=== PATIENT | female | born 1985 | race Caucasian/White ===

== ENCOUNTER 2017-12-11 11:52 | Inpatient (IN) | payer OTHER ==
[2017-12-11] MEDS: LACTATED RINGER'S 1,000 ML IV ×2 (12:49→17:00)
[2017-12-11 13:02] LABS: ADD MAN DIFF? NO
[2017-12-11 13:05] LABS: WHITE BLOOD COUNT 12.2 10^3/ul (4.8-10.8)
[2017-12-11 13:05] LABS: BASOPHILS % 0.3 % (0.0-2.0); EOSINOPHILS # 0.1 10^3/ul (0.0-0.5); EOSINOPHILS % 0.7 % (0.0-7.0); HEMATOCRIT 26.4 % (37.0-47.0); HEMOGLOBIN 9.1 g/dl (12.0-16.0); LYMPHOCYTES # 1.3 10^3/ul (0.8-2.9); LYMPHOCYTES % 10.8 % (15.0-51.0); MEAN CORPUSCULAR HEMOGLOBIN 32.5 pg (29.0-33.0); MEAN CORPUSCULAR HGB CONC 34.5 g/dl (32.0-37.0); MEAN CORPUSCULAR VOLUME 94.3 fl (82.0-101.0); MEAN PLATELET VOLUME 11.2 fl (7.4-10.4); MONOCYTE # 0.9 10^3/ul (0.3-0.9); MONOCYTES % 7.4 % (0.0-11.0); NEUTROPHIL # 9.6 10^3/ul (1.6-7.5); NEUTROPHILS % 79.1 % (39.0-77.0); PLATELET COUNT 212 10^3/UL (140-415); RED CELL DISTRIBUTION WIDTH 13.4 % (11.5-14.5)
[2017-12-11 13:27] LABS: ALBUMIN/GLOBULIN RATIO 0.93; ANION GAP 7 (5-13); CARBON DIOXIDE 23 mmol/L (21-31); CHLORIDE 107 mmol/L (97-110); Estimated GFR > 60 mL/min (>60); POTASSIUM 4.1 mmol/L (3.5-5.1); SODIUM 137 mmol/L (135-144)
[2017-12-11 13:40] LABS: RUPTURE FETAL MEMBRANES NEGATIVE (NEGATIVE)
[2017-12-11] MEDS: BETAMET NA PHOS/AC(6 MG/ML) 5ML INJ IM (13:42)
[2017-12-11 13:47] LABS: ALANINE AMINOTRANSFERASE 17 IU/L (13-69); ALBUMIN 2.7 g/dl (3.3-4.9); ALKALINE PHOSPHATASE 95 IU/L (42-121); ASPARTATE AMINO TRANSFERASE 22 IU/L (15-46); BILIRUBIN,INDIRECT 0.2 mg/dl (0-1.1); BILIRUBIN,TOTAL 0.2 mg/dl (0.2-1.3); BLOOD UREA NITROGEN 7 mg/dl (7-20); CALCIUM 9.1 mg/dl (8.4-10.2); GLUCOSE 89 mg/dl (70-220); TOTAL PROTEIN 5.6 g/dl (6.1-8.1)
[2017-12-11 13:58] LABS: HEPATITIS B SURFACE ANTIGEN NEGATIVE (NEGATIVE)
[2017-12-11 14:08] LABS: HIV 1&2 ANTIBODY NEGATIVE (NEGATIVE)
[2017-12-11 14:50] LABS: ADD UMIC NO; UR ASCORBIC ACID NEGATIVE (NEGATIVE); UR BILIRUBIN (Dip) NEGATIVE (NEGATIVE); UR BLOOD (Dip) NEGATIVE (NEGATIVE); UR CLARITY SLIGHTLY CLOUDY (CLEAR); UR COLOR STRAW (YELLOW); UR GLUCOSE (Dip) NEGATIVE (NEGATIVE); UR KETONES (Dip) NEGATIVE (NEGATIVE); UR LEUKOCYTE ESTERASE (Dip) NEGATIVE Leu/ul (NEGATIVE); UR NITRITE (Dip) NEGATIVE (NEGATIVE); UR RBC 0 /HPF (0-5); UR SPECIFIC GRAVITY (Dip) 1.005 (1.003-1.030); UR TOTAL PROTEIN (Dip) NEGATIVE (NEGATIVE); UR UROBILINOGEN (Dip) NEGATIVE (NEGATIVE); UR WBC 0 /HPF (0-5)
[2017-12-11 20:20] LABS: RAPID PLASMA REAGIN NONREACTIVE (NR)
[2017-12-12] MEDS: LACTATED RINGER'S 1,000 ML IV ×2 (00:51→08:49)
[2017-12-12] MEDS: LEVOTHYROXINE 25 MCG TAB PO (06:12)
[2017-12-12 10:27] LABS: RUBELLA ANTIBODY - IGG 2.56 index
[2017-12-12 11:11] LABS: RUBELLA ANTIBODY - IGM <20.00 AU/mL
[2017-12-12] MEDS: BETAMET NA PHOS/AC(6 MG/ML) 5ML INJ IM (14:01)
[2017-12-12 14:16] LABS: HSV 1 IGG ANTIBODY <0.90 index; HSV 2 IGG ANTIBODY <0.90 index
[2017-12-13 19:56] LABS: HSV1 IgM SCREEN NEGATIVE; HSV2 IgM SCREEN NEGATIVE
== END 2017-12-12 15:00 | disposition home or self-care (01) | DRG 833 ==
LOC: OBT 11:52 → L-D 11:52 → OBT 13:13 → L-D 13:13
PROVIDERS: Obstetrics & Gynecology
DX: O41.02X2 Oligohydramnios, second trimester, fetus 2 (principal); O30.002 Twin pregnancy, unspecified number of placenta and unspecified number of amniotic sacs, second trimester; Z3A.24 24 weeks gestation of pregnancy
CPT/HCPCS: 36415; 80053; 81001; 81003; 84112; 85025; 86592; 86644; 86645; 86692; 86694; 86695; 86696; 86703; 86762; 86777; 86778; 86900; 86901; 87340

== ENCOUNTER 2018-02-28 13:25 | Inpatient (IN) | payer OTHER ==
[2018-02-28] MEDS ORDERED: CARBOPROST 250 MCG INJ IM (14:30)
[2018-02-28] MEDS ORDERED: CEFAZOLIN 2 GM/50 ML (PMX) 50 ML IVPB (14:30)
[2018-02-28] MEDS ORDERED: MISOPROSTOL 200 MCG TAB PR (14:30)
[2018-02-28] MEDS ORDERED: OXYTOCIN 30 UNITS/LR 500 ML IV (14:30)
[2018-02-28] MEDS ORDERED: METHYLERGONOVINE 0.2 MG INJ IM (14:30)
[2018-02-28] MEDS: BETAMET NA PHOS/AC(6 MG/ML) 2 ML INJ SYG IM (15:36)
[2018-02-28 16:01] LABS: ADD MAN DIFF? NO
[2018-02-28 16:03] LABS: WHITE BLOOD COUNT 13.8 10^3/ul (4.8-10.8)
[2018-02-28 16:03] LABS: BASOPHIL # 0.1 10^3/ul (0.0-0.1); BASOPHILS % 0.5 % (0.0-2.0); EOSINOPHILS % 0.3 % (0.0-7.0); HEMATOCRIT 32.3 % (37.0-47.0); HEMOGLOBIN 11.2 g/dl (12.0-16.0); LYMPHOCYTES # 1.7 10^3/ul (0.8-2.9); LYMPHOCYTES % 12.2 % (15.0-51.0); MEAN CORPUSCULAR HEMOGLOBIN 31.8 pg (29.0-33.0); MEAN CORPUSCULAR HGB CONC 34.7 g/dl (32.0-37.0); MEAN CORPUSCULAR VOLUME 91.8 fl (82.0-101.0); MEAN PLATELET VOLUME 12.5 fl (7.4-10.4); MONOCYTE # 0.8 10^3/ul (0.3-0.9); MONOCYTES % 5.5 % (0.0-11.0); NEUTROPHILS % 79.8 % (39.0-77.0); PLATELET COUNT 181 10^3/UL (140-415); RED BLOOD COUNT 3.52 10^6/ul (4.20-5.40); RED CELL DISTRIBUTION WIDTH 12.7 % (11.5-14.5)
[2018-02-28 16:24] LABS: INR 0.85; PARTIAL THROMBOPLASTIN TIME 27.8 Sec (23.0-35.0); PROTIME 11.7 Sec (11.9-14.9); PT RATIO 0.9
[2018-02-28 16:55] LABS: HEPATITIS B SURFACE ANTIGEN NEGATIVE (NEGATIVE)
[2018-02-28] MEDS: LACTATED RINGER'S 1,000 ML IV ×2 (17:01→23:12)
[2018-03-01] MEDS: BETAMET NA PHOS/AC(6 MG/ML) 2 ML INJ SYG IM (03:41)
[2018-03-01] MEDS ORDERED: OXYTOCIN 30 UNITS/LR 500 ML BAG IV (07:00)
[2018-03-01] MEDS: LACTATED RINGER'S 1,000 ML IV ×3 (07:02→21:17)
[2018-03-01] MEDS ORDERED: CITRIC ACID/NA CITRATE 30 ML CUP (13:44)
[2018-03-01] MEDS: CITRIC ACID/NA CITRATE 30 ML CUP PO (13:58)
[2018-03-01 15:35] LABS: RAPID PLASMA REAGIN NONREACTIVE (NR)
[2018-03-01] MEDS ORDERED: KETOROLAC 30 MG INJ IV (19:00)
[2018-03-01] MEDS ORDERED: DIPHENHYDRAMINE 50 MG INJ IV ×2 (19:00)
[2018-03-01] MEDS ORDERED: HYDROmorphONE 0.5 MG/0.5 ML SYG IV ×2 (19:00)
[2018-03-01] MEDS ORDERED: HYDROmorphONE 1 MG/5 ML IV SYRINGE IV ×3 (19:00)
[2018-03-01] MEDS ORDERED: METOCLOPRAMIDE 10 MG INJ IV (19:00)
[2018-03-01] MEDS ORDERED: ONDANSETRON 4 MG INJ IV ×2 (19:00)
[2018-03-01] MEDS ORDERED: NALOXONE (0.4 MG/ML) INJ IV (19:00)
[2018-03-01] MEDS ORDERED: FENTAnyl 50 MCG/ML VIAL IV ×3 (19:00)
[2018-03-01] MEDS ORDERED: ALBUTEROL 0.083% (NEB) 2.5 MG/3 ML AMP HHN (19:00)
[2018-03-01] MEDS ORDERED: morphine SULFATE/PF (10 MG/10 ML) INJ (19:25)
[2018-03-01] MEDS ORDERED: PHENYLephrine (100 MCG/ML) 5ML SYG (19:34)
[2018-03-01] MEDS: OXYTOCIN 30 UNITS/LR 500 ML IV (21:00)
[2018-03-01] MEDS ORDERED: NACL 0.9% 3 ML SYG IV (21:30)
[2018-03-01] MEDS ORDERED: OXYTOCIN 30 UNITS/LR 500 ML IV (21:30)
[2018-03-01] MEDS ORDERED: MISOPROSTOL 200 MCG TAB PR (21:30)
[2018-03-01] MEDS ORDERED: METHYLERGONOVINE 0.2 MG INJ IM (21:30)
[2018-03-01] MEDS ORDERED: CARBOPROST 250 MCG INJ IM (21:30)
[2018-03-01] MEDS: KETOROLAC 30 MG INJ IV (23:05)
[2018-03-02] MEDS: OXYTOCIN 30 UNITS/LR 500 ML IV (01:56)
[2018-03-02 07:29] LABS: ADD MAN DIFF? NO
[2018-03-02 07:34] LABS: BASOPHILS % 0.1 % (0.0-2.0); HEMATOCRIT 23.2 % (37.0-47.0); HEMOGLOBIN 8.1 g/dl (12.0-16.0); LYMPHOCYTES # 1.6 10^3/ul (0.8-2.9); LYMPHOCYTES % 7.5 % (15.0-51.0); MEAN CORPUSCULAR HEMOGLOBIN 32.8 pg (29.0-33.0); MEAN CORPUSCULAR HGB CONC 34.9 g/dl (32.0-37.0); MEAN CORPUSCULAR VOLUME 93.9 fl (82.0-101.0); MEAN PLATELET VOLUME 12.4 fl (7.4-10.4); MONOCYTE # 1.4 10^3/ul (0.3-0.9); MONOCYTES % 6.7 % (0.0-11.0); NEUTROPHIL # 17.7 10^3/ul (1.6-7.5); NEUTROPHILS % 82.6 % (39.0-77.0); NUCLEATED RED BLOOD CELLS # 0.1 10^3/ul (0.0-0.0); NUCLEATED RED BLOOD CELLS% 0.2 /100WBC (0.0-0.0); PLATELET COUNT 129 10^3/UL (140-415); RED BLOOD COUNT 2.47 10^6/ul (4.20-5.40); RED CELL DISTRIBUTION WIDTH 12.9 % (11.5-14.5)
[2018-03-02 07:34] LABS: WHITE BLOOD COUNT 21.4 10^3/ul (4.8-10.8)
[2018-03-02 14:51] LABS: RHOGAM PROFILE 1 1
[2018-03-02] MEDS: KETOROLAC 30 MG INJ IV (15:58)
[2018-03-02] MEDS: IBUPROFEN 800 MG TAB PO (21:33)
[2018-03-03] MEDS: OXYCODONE/ACETAMINOPHEN (5/325) TAB PO ×5 (00:50→21:18)
[2018-03-03] MEDS: IBUPROFEN 800 MG TAB PO ×4 (06:06→23:45)
[2018-03-03 09:06] LABS: ADD MAN DIFF? NO
[2018-03-03 09:10] LABS: WHITE BLOOD COUNT 16.3 10^3/ul (4.8-10.8)
[2018-03-03 09:10] LABS: BASOPHILS % 0.2 % (0.0-2.0); EOSINOPHILS % 0.2 % (0.0-7.0); HEMATOCRIT 22.8 % (37.0-47.0); HEMOGLOBIN 7.7 g/dl (12.0-16.0); LYMPHOCYTES # 2.2 10^3/ul (0.8-2.9); LYMPHOCYTES % 13.7 % (15.0-51.0); MEAN CORPUSCULAR HEMOGLOBIN 32.2 pg (29.0-33.0); MEAN CORPUSCULAR HGB CONC 33.8 g/dl (32.0-37.0); MEAN CORPUSCULAR VOLUME 95.4 fl (82.0-101.0); MEAN PLATELET VOLUME 12.5 fl (7.4-10.4); MONOCYTE # 1.4 10^3/ul (0.3-0.9); MONOCYTES % 8.5 % (0.0-11.0); NEUTROPHILS % 73.5 % (39.0-77.0); NUCLEATED RED BLOOD CELLS # 0.1 10^3/ul (0.0-0.0); NUCLEATED RED BLOOD CELLS% 0.6 /100WBC (0.0-0.0); PLATELET COUNT 125 10^3/UL (140-415); RED BLOOD COUNT 2.39 10^6/ul (4.20-5.40)
[2018-03-03] MEDS: LANOLIN HPA 1 PKT TOP (12:52)
[2018-03-04] MEDS: OXYCODONE/ACETAMINOPHEN (5/325) TAB PO ×4 (03:34→20:55)
[2018-03-04] MEDS: IBUPROFEN 800 MG TAB PO ×3 (06:22→17:44)
[2018-03-04] MEDS: BISACODYL 10 MG SUPP PR (06:22)
[2018-03-04] MEDS: DOCUSATE SODIUM 100 MG CAP PO ×2 (09:04→20:55)
[2018-03-04] MEDS: DIPHTH/TET/ACEL PERTUSS (ADULT) 0.5 ML VIAL IM* (10:47)
[2018-03-05] MEDS: IBUPROFEN 800 MG TAB PO ×4 (00:06→17:52)
[2018-03-05] MEDS: DOCUSATE SODIUM 100 MG CAP PO ×2 (08:08→20:33)
[2018-03-05] MEDS: OXYCODONE/ACETAMINOPHEN (5/325) TAB PO ×3 (08:09→20:22)
== END 2018-03-05 23:00 | disposition home or self-care (01) | DRG 788 ==
LOC: L-D 13:25 → PP1 03-01 23:33
PROVIDERS: Obstetrics & Gynecology
PROC: 10D00Z1 Extraction of Products of Conception, Low, Open Approach (ICD-10-PCS; principal; 2018-03-01 18:00)
PROC: 0UB90ZZ Excision of Uterus, Open Approach (ICD-10-PCS; 2018-03-01 18:00)
DX: O36.5931 Maternal care for other known or suspected poor fetal growth, third trimester, fetus 1 (principal); O30.043 Twin pregnancy, dichorionic/diamniotic, third trimester; O34.13 Maternal care for benign tumor of corpus uteri, third trimester; D25.9 Leiomyoma of uterus, unspecified; Z37.2 Twins, both liveborn; Z3A.34 34 weeks gestation of pregnancy
CPT/HCPCS: 85025; 85610; 85730; 86592; 86850; 86870; 86885; 86900; 86901; 87340; 88305; 88307; 90686; 90715; 99464